=== PATIENT | female | born 1960 | race African-American/Black ===

== ENCOUNTER 2018-08-13 09:46 | Emergency (ER) | payer MEDICAID, MEDICARE ==
[~2018-08-13] VITALS: Ht 172.7 cm; Wt 62.0 kg
[~2018-08-13 09:46] MED LIST: FLUT1DIS5 IH; HYDR-523 PO; S350 PO; TIOT18CA3 INH; inhaler INH
[2018-08-13] MEDS ORDERED: ADENOSINE 3 MG/ML 2ML VIAL IV ONE ×2 (10:18→11:15)
[2018-08-13 10:50] LABS: BASOPHILS % 1.1 % (0.0-2.0); HEMATOCRIT. 47.5 % (36.0-48.0); HEMOGLOBIN. 15.5 g/dL (12.0-16.0); LYMPHOCYTES % 31.8 % (20.0-50.0); MEAN CORPUSCULAR HEMOGLOBIN 29.4 pg (28.0-32.0); MEAN PLATELET VOLUME 7.6 fl (7.4-10.4); MONOCYTES % 6.3 % (2.0-8.0); NEUTROPHILS % 59.8 % (40.0-76.0); PLATELET 218 x1000/uL (130-400); RED BLOOD CELL COUNT 5.28 mill/uL (4.2-5.4); RED CELL DISTRIBUTION WIDTH 14.5 % (11.6-14.6)
[2018-08-13 10:57] LABS: CHLORIDE 110 mEq/L (98-107)
[2018-08-13 14:00] VITALS: BP 118/77
== END 2018-08-13 14:08 | disposition home or self-care (01) ==
LOC: ER 10:07
DX: I47.1 Supraventricular tachycardia (principal); M25.511 Pain in right shoulder; J44.9 Chronic obstructive pulmonary disease, unspecified; I49.9 Cardiac arrhythmia, unspecified; F17.200 Nicotine dependence, unspecified, uncomplicated; Z88.0 Allergy status to penicillin; Z88.6 Allergy status to analgesic agent; Z91.041 Radiographic dye allergy status
CPT/HCPCS: 36415; 71045; 80053; 83735; 83880; 84484; 85025; 92960; 93005; 96374; 99285; J0153